=== PATIENT | male | born 1945 | race African-American/Black ===

== ENCOUNTER 2018-08-11 16:01 | Inpatient (IN) | payer MEDICARE, MEDICAID ==
[~2018-08-11] VITALS: Ht 172.7 cm; Wt 75.7 kg
[2018-08-11 16:50] VITALS: BP 130/53
[2018-08-11 17:02] LABS: ANION GAP 6 mmol/L (5-15); BLOOD UREA NITROGEN 16 mg/dL (7-18); CALCIUM 9.3 MG/DL (8.5-10.1); CARBON DIOXIDE 30 MMOL/L (21-32); CHLORIDE 104 MMOL/L (98-107); POTASSIUM 4.6 MMOL/L (3.5-5.1); SODIUM 139 MMOL/L (136-145)
[2018-08-11 17:15] LABS: ALANINE AMINOTRANSFERASE 49 U/L (12-78); ALBUMIN 3.5 G/DL (3.4-5.0); ALBUMIN/GLOBULIN RATIO 0.7 (1.0-2.7); ALKALINE PHOSPHATASE 67 U/L (46-116); ASPARTATE AMINO TRANSFERASE 52 U/L (15-37); BILIRUBIN,TOTAL 0.4 MG/DL (0.2-1.0); CKMB 0.7 NG/ML (0.0-3.6); CREATINE KINASE 176 U/L (26-308)
--- NOTE | 2018-08-11 17:59 | Diagnostic Imaging Report ---
EXAM: CT Head Without Intravenous Contrast CLINICAL HISTORY: AMS TECHNIQUE: Axial computed tomography images of the head/brain without intravenous contrast. CTDI is 70.38 mGy and DLP is 1333 mGy-cm. One or more of the following dose reduction techniques were used: automated exposure control, adjustment of the mA and/or kV according to patient size, use of iterative reconstruction technique. COMPARISON: No relevant prior studies available. FINDINGS: Brain: No intracranial hemorrhage or mass effect. No clear acute large vessel territorial infarct. Moderate involutional and microvascular ischemic changes Ventricles: Unremarkable. No ventriculomegaly. Bones/joints: Unremarkable. No acute fracture. Soft tissues: Right ocular globe calcifications. Sinuses: Unremarkable as visualized. No acute sinusitis. Mastoid air cells: Unremarkable as visualized. No mastoid effusion. IMPRESSION: No acute intracranial process. Moderate involutional and microvascular ischemic changes.
--- NOTE | 2018-08-11 18:00 | Diagnostic Imaging Report ---
EXAM: XR Chest, 1 View CLINICAL HISTORY: DIZZY TECHNIQUE: Frontal view of the chest. COMPARISON: No relevant prior studies available. FINDINGS: Lungs: Linear opacities in the midlungs bilaterally, potentially from atelectasis. Difficult to exclude infectious infiltrate. Pleural space: Unremarkable. No pneumothorax. Heart: Unremarkable. No cardiomegaly. Mediastinum: Unremarkable. Bones/joints: Unremarkable. IMPRESSION: Linear opacities in the midlungs bilaterally, potentially from atelectasis. Difficult to exclude infectious infiltrate.
[2018-08-11 18:06] LABS: BASOPHILS % (AUTO) 1.2 % (0.0-2.0); EOSINOPHILS % (AUTO) 2.1 % (0.0-3.0); HEMATOCRIT 44.5 % (42.0-52.0); LYMPHOCYTES % (AUTO) 31.2 % (20.0-45.0); MEAN CORPUSCULAR VOLUME 94 FL (80-99); MONOCYTES % (AUTO) 8.9 % (1.0-10.0); NEUTROPHILS % (AUTO) 56.5 % (45.0-75.0); PLATELET COUNT 188 K/UL (150-450); RED BLOOD COUNT 4.74 M/UL (4.70-6.10); RED CELL DISTRIBUTION WIDTH 10.3 % (11.6-14.8); WHITE BLOOD COUNT 7.3 K/UL (4.8-10.8)
--- NOTE | 2018-08-11 18:29 | Emergency Room Report ---
History of Present Illness General Chief Complaint: Generalized Weakness Present Illness HPI Patient is 73-year-old male brought in by EMS after increased generalized weakness. Patient gradual onset of symptoms. Patient was noted to have increased weakness as well as dizziness. He reports having intermittent chest pain. The patient been sent in from nursing facility. He is followed by Dr. Fajardo. The patient had been the noted to have continued symptoms and was sent in for further evaluation. Allergies: Coded Allergies: No Known Allergies (Unverified , 08/11/18) Patient History Past Medical History: see triage record Reviewed Nursing Documentation: PMH: Agreed; PSxH: Agreed Nursing Documentation-PMH Hx Cardiac Problems: No - angina pectoris Hx Hypertension: Yes Hx COPD: Yes Review of Systems All Other Systems: limited - by poor historian Physical Exam Vital Signs Date Time Temp Pulse Resp B/P (MAP) Pulse Ox O2 Delivery O2 Flow Rate FiO2 08/11/18 16:05 97.9 58 18 116/66 95 Room Air Sp02 EP Interpretation: reviewed, normal General Appearance: normal inspection, well appearing, no apparent distress, alert, GCS 15, Chronically Ill Head: atraumatic ENT: normal ENT inspection, hearing grossly normal, normal voice Neck: normal inspection, full range of motion, supple, no bony tend Respiratory: normal inspection, lungs clear, normal breath sounds, no respiratory distress, no retraction, no wheezing Cardiovascular #1: regular rate, rhythm, no edema Gastrointestinal: normal inspection, normal bowel sounds, non tender, soft, no guarding, no hernia Genitourinary: no CVA tenderness Musculoskeletal: normal inspection, back normal, normal range of motion Neurologic: normal inspection, alert, responsive, speech normal Psychiatric: normal inspection, judgement/insight normal, mood/affect normal Skin: normal inspection, normal color, no rash Medical Decision Making Diagnostic Impression: Primary Impression: Generalized weakness Additional Impression: Chest pain ER Course The patient presented for chest pain and dizziness. Differential diagnosis included but was not limited to acute coronary syndrome, pulmonary embolism, pneumonia, aortic dissection, shingles, pneumothorax, aortic dissection, esophageal rupture, pericarditis. Because of complexity of patient's case laboratory testing and imaging studies were ordered. EKG interpreted by me showed sinus pericardia with a rate of [address] or T wave changes. The laboratory testing was unremarkable. Patient the was discussed with Dr. Ace Fajardo for inpatient management due to primary care physician Labs Test 08/11/18 16:30 08/11/18 17:40 Sodium Level 139 MMOL/L (136-145) Potassium Level 4.6 MMOL/L (3.5-5.1) Chloride Level 104 MMOL/L (98-107) Carbon Dioxide Level 30 MMOL/L (21-32) Anion Gap 6 mmol/L (5-15) Blood Urea Nitrogen 16 mg/dL (7-18) Creatinine 1.0 MG/DL (0.55-1.30) Estimat Glomerular Filtration Rate mL/min (>60) Glucose Level 98 MG/DL (74-106) Calcium Level 9.3 MG/DL (8.5-10.1) Total Bilirubin 0.4 MG/DL (0.2-1.0) Aspartate Amino Transf (AST/SGOT) 52 U/L (15-37) Alanine Aminotransferase (ALT/SGPT) 49 U/L (12-78) Alkaline Phosphatase 67 U/L (46-116) Total Creatine Kinase 176 U/L (26-308) Creatine Kinase MB 0.7 NG/ML (0.0-3.6) Creatine Kinase MB Relative Index 0.3 Troponin I 0.046 ng/mL (0.000-0.056) Pro-B-Type Natriuretic Peptide 36 pg/mL (0-125) Total Protein 8.3 G/DL (6.4-8.2) Albumin 3.5 G/DL (3.4-5.0) Globulin 4.8 g/dL Albumin/Globulin Ratio 0.7 (1.0-2.7) Lipase 210 U/L (73-393) White Blood Count 7.3 K/UL (4.8-10.8) Red Blood Count 4.74 M/UL (4.70-6.10) Hemoglobin 15.0 G/DL (14.2-18.0) Hematocrit 44.5 % (42.0-52.0) Mean Corpuscular Volume 94 FL (80-99) Mean Corpuscular Hemoglobin 31.6 PG (27.0-31.0) Mean Corpuscular Hemoglobin Concent 33.7 G/DL (32.0-36.0) Red Cell Distribution Width 10.3 % (11.6-14.8) Platelet Count 188 K/UL (150-450) Mean Platelet Volume 5.9 FL (6.5-10.1) Neutrophils (%) (Auto) 56.5 % (45.0-75.0) Lymphocytes (%) (Auto) 31.2 % (20.0-45.0) Monocytes (%) (Auto) 8.9 % (1.0-10.0) Eosinophils (%) (Auto) 2.1 % (0.0-3.0) Basophils (%) (Auto) 1.2 % (0.0-2.0) EKG Diagnostic Results Rate: bradycardiac Rhythm: NSR ST Segments: no acute changes Last Vital Signs Date Time Temp Pulse Resp B/P (MAP) Pulse Ox O2 Delivery O2 Flow Rate FiO2 08/11/18 16:50 97.9 57 21 130/53 100 Room Air Status: improved Disposition: HOME, SELF-CARE Condition: Stable Christopher Badillo MD Aug 11, 2018 18:29
[2018-08-11 18:51] LABS: INR 1.1 (0.9-1.1)
[2018-08-11 20:30] VITALS: BP 131/78
[2018-08-11 22:25] VITALS: BP 136/69
[2018-08-11] MEDS ORDERED: ATORVASTATIN CA20 MG ORAL (23:02)
[2018-08-11] MEDS ORDERED: ISOSORBIDE DINI20 M2 PO (23:02)
[2018-08-11] MEDS ORDERED: FOLIC ACID1 MG ORAL (23:02)
[2018-08-11] MEDS ORDERED: ASPIR 8181 MG ORAL (23:02)
[2018-08-11] MEDS ORDERED: MELATONIN 5 MG1 EAC1 ORAL (23:02)
[2018-08-11] MEDS ORDERED: MULTIVITAMINS1 EAC8 ORAL (23:02)
[2018-08-11] MEDS ORDERED: DOCUSATE SODIU100 MG ORAL (23:02)
[2018-08-11] MEDS ORDERED: TRAMADOL HCL50 MG ORAL (23:04)
[2018-08-11] MEDS ORDERED: VITAMIN B-1100 MG ORAL (23:04)
[2018-08-11] MEDS ORDERED: PYRIDOXINE HCL50 MG ORAL (23:04)
[2018-08-12] VITALS: BP 119/45
--- NOTE | 2018-08-12 | History and Physical Report ---
DATE OF ADMISSION: 08/11/2018 HISTORY OF PRESENT ILLNESS: This is an elderly male who was living at senior living, initially was coming from the senior living where he had chest pain and dizzy spell. The patient went to [facility] three days ago for dizziness workup. The patient was sent home. The patient is still complaining of recurrent chest pain as well as dizziness. He has no fever. No chills. PAST MEDICAL HISTORY: Significant for hypertension and degenerative arthritis. MEDICATIONS: See the list. ALLERGIES: NKA. FAMILY HISTORY: Noncontributory. SOCIAL HISTORY: Lives at the senior living. PHYSICAL EXAMINATION: GENERAL: This is an elderly male, currently awake, comfortable. VITAL SIGNS: Blood pressure was 130/70, pulse in the low 50s, 56, and respiration 18. No fever. SKIN: Good skin turgor. HEENT: NAD. CHEST: Bilaterally clear. CARDIOVASCULAR: Regular rhythm. No gallop. No murmur. ABDOMEN: Soft. Positive bowel sounds. EXTREMITIES: No edema. GENITOURINARY: Deferred. ASSESSMENT: 1. Chest pain. 2. Dizziness. 3. Hypertension. 4. Hyperlipidemia. 5. Atherosclerosis. 6. Degenerative arthritis. PLAN: We will rule out myocardial infarction. Consider Cardiology consult and start aspirin, beta-blanca, and Cardiology consult. Ace Fajardo M.D. DR: IRWIN JOB#: [id number] CC:
[2018-08-12 04:00] VITALS: BP 98/55
[2018-08-12 08:00] VITALS: BP 136/67
[2018-08-12] MEDS: Pyridoxine 50mg tab ORAL SCH (09:22)
[2018-08-12] MEDS: Docusate 100mg cap ORAL SCH (09:23)
[2018-08-12] MEDS: Aspirin EC 81mg tab ORAL SCH (09:24)
[2018-08-12] MEDS: Multivitamin w/Minerals tab ORAL SCH (09:24)
[2018-08-12] MEDS ORDERED: Nitroglycerin Subl 0.4mg tab SL PRN (09:45)
[2018-08-12] MEDS: Thiamine 100mg tab ORAL SCH (09:53)
[2018-08-12] MEDS: cefTRIAXone 1 GM in D5W 55 ML IVPB SCH (11:50)
[2018-08-12 12:00] VITALS: BP 112/63
[2018-08-12 16:00] VITALS: BP 128/61
--- NOTE | 2018-08-12 17:22 | Cardiology Progress Note ---
Assessment/Plan Assessment/Plan The patient is seen and examined, full consult note will be dictated. Objective Last 24 Hour Vital Signs Date Time Temp Pulse Resp B/P (MAP) Pulse Ox O2 Delivery O2 Flow Rate FiO2 08/12/18 16:00 98.4 56 18 128/61 (83) 98 08/12/18 12:00 97.6 59 18 112/63 (79) 97 08/12/18 12:00 52 08/12/18 10:43 127/61 08/12/18 09:23 136/67 08/12/18 09:00 Room Air 08/12/18 08:00 97.4 58 20 136/67 (90) 97 08/12/18 08:00 66 08/12/18 04:00 97.3 58 18 98/55 (69) 98 08/12/18 04:00 58 08/12/18 00:00 67 08/12/18 00:00 98.5 67 20 119/45 (69) 98 08/11/18 23:30 Room Air 08/11/18 23:30 63 08/11/18 23:05 98.4 76 16 136/69 100 Room Air 08/11/18 22:25 98.4 76 16 136/69 100 Room Air 08/11/18 20:30 98.4 79 16 131/78 100 Room Air Intake and Output 08/11/18 08/12/18 19:00 07:00 Intake Total 120 ml Balance 120 ml Intake Oral 120 ml # Voids 2 # Bowel Movements 1 Laboratory Tests Test 08/11/18 17:40 08/11/18 17:45 08/12/18 10:20 White Blood Count 7.3 K/UL (4.8-10.8) Red Blood Count 4.74 M/UL (4.70-6.10) Hemoglobin 15.0 G/DL (14.2-18.0) Hematocrit 44.5 % (42.0-52.0) Mean Corpuscular Volume 94 FL (80-99) Mean Corpuscular Hemoglobin 31.6 PG (27.0-31.0) H Mean Corpuscular Hemoglobin Concent 33.7 G/DL (32.0-36.0) Red Cell Distribution Width 10.3 % (11.6-14.8) L Platelet Count 188 K/UL (150-450) Mean Platelet Volume 5.9 FL (6.5-10.1) L Neutrophils (%) (Auto) 56.5 % (45.0-75.0) Lymphocytes (%) (Auto) 31.2 % (20.0-45.0) Monocytes (%) (Auto) 8.9 % (1.0-10.0) Eosinophils (%) (Auto) 2.1 % (0.0-3.0) Basophils (%) (Auto) 1.2 % (0.0-2.0) Prothrombin Time 11.2 SEC (9.30-11.50) Prothromb Time International Ratio 1.1 (0.9-1.1) Activated Partial Thromboplast Time 25 SEC (23-33) D-Dimer 0.90 mg/L FEU (0.00-0.49) H Troponin I 0.051 ng/mL (0.000-0.056) Heber Torres MD Aug 12, 2018 17:22
--- NOTE | 2018-08-12 19:15 | Progress Note ---
DATE: 08/12/2018 SUBJECTIVE: This is a 73-year-old male, currently doing fine, and still complaining of recurrent chest pain. He was given nitroglycerin. Blood pressure is controlled. OBJECTIVE: VITAL SIGNS: Blood pressure 136/67, pulse 58, respirations 20, and temperature 97.4. HEENT: NAD. CHEST: Bilaterally few wheezing and crackles. CARDIOVASCULAR: Regular rhythm. No gallop. No murmur. ABDOMEN: Soft. Positive bowel sounds. EXTREMITIES: CCE. NEUROLOGICALLY: No focal deficit. LABORATORY DATA: White count 7.3, hemoglobin 15, hematocrit 44, and platelets are 188,000. Chemistry panel is sodium 139, potassium 4.6, BUN 16, and creatinine 1. Troponin 0.046. BNP 36. CT of head is negative. Chest x-ray showed possible pneumonia and acute and chronic obstructive pulmonary disease, and interstitial lung disease. ASSESSMENT: 1. Chest pain, rule out of myocardial infarction. 2. Acute chronic obstructive pulmonary disease exacerbation. 3. Dizziness. 4. Hypertension. 5. Hyperlipidemia. PLAN: 1. We will consider Cardiology consult. 2. Add nitroglycerin. 3. Continue aspirin. 4. Continue beta-blanca. 5. Continue Lipitor and probably need echo. 6. CT of brain is negative. 7. PT and OT. Ace Fajardo M.D. DR: IRWIN JOB#: [id number] CC:
[2018-08-12 20:00] VITALS: BP 121/69
[2018-08-12] MEDS: Metoprolol 25mg tab ORAL SCH (21:12)
[2018-08-12] MEDS: Solu-MEDROL 40mg Inj IVP SCH (21:13)
[2018-08-12] MEDS: traMADol 50mg tab ORAL PRN (23:19)
--- NOTE | 2018-08-12 23:30 | Consultation ---
DATE OF CONSULTATION: 08/12/2018 CARDIOLOGY CONSULTATION CONSULTING PHYSICIAN: Heber Torres M.D. REFERRING PHYSICIAN: Dr. Anthony Fajardo. REASON FOR CONSULTATION: Management of chest pain. HISTORY OF PRESENT ILLNESS: The patient is a very unfortunate 73-year-old gentleman who was brought in by EMS from correction facility at request of Dr. Fajardo for evaluation and management of generalized weakness as well as intermittent chest pain. The patient has history of angina pectoris and has coronary artery disease, risk factors of hypertension by history. He is a very poor historian and I cannot obtain detailed history. On arrival to the emergency department, blood pressure was 116/66 mmHg and heart rate of 58. A 12-lead electrocardiogram in the emergency department showed sinus bradycardia with rate of 57 with normal axis and septal infarct, age indeterminate, but no acute ischemic features. Chest x-ray was unremarkable besides atelectasis. The patient was admitted to telemetry for further evaluation and management. Of note, troponin I x2 became negative, so he was ruled out for acute myocardial infarction. PAST MEDICAL HISTORY: 1. History of hypertension. 2. History of degenerative joint disease. 3. History of angina pectoris. 4. History of chronic obstructive pulmonary disease. REVIEW OF SYSTEMS: HEENT: Denies any headache, diplopia, or blurred vision. CONSTITUTIONAL: Denies any fever, chills, or night sweats. Positive for generalized weakness. CARDIOVASCULAR: Chest pain, but no PND, orthopnea, leg swelling, palpitations, or syncope. PULMONARY: Denies any cough, hemoptysis, or wheezing. GASTROINTESTINAL: Denies any nausea, vomiting, diarrhea, constipation, abdominal pain, or GI bleed. GENITOURINARY: Denies any hematuria, dysuria, or incontinence. NEUROLOGY: Denies any motor dysfunction, sensory deficit, or altered speech. MEDICATIONS: List of medication at nursing facility, aspirin 81 mg p.o. daily, atorvastatin 10 mg p.o. at bedtime, Colace 100 mg p.o. daily, folic acid 1 mg p.o. daily, isosorbide dinitrate 10 mg p.o. daily, melatonin 1 tablet p.o. at bedtime p.r.n. insomnia, multivitamin 1 tablet by mouth daily, vitamin B6 50 mg p.o. daily, thiamine 100 mg p.o. daily, and Ultram 50 mg q.8 hours p.r.n. pain. ALLERGIES: No known drug allergies. PAST SURGICAL HISTORY: None. SOCIAL HISTORY: No prior history of tobacco, alcohol, or illicit drug use according to the chart. FAMILY HISTORY: No premature coronary artery disease in first-degree relatives. PHYSICAL EXAMINATION: VITAL SIGNS: Blood pressure is 116/66, pulse of 58, respirations of 18, temperature 97.9 degrees Fahrenheit, and O2 saturation 95% on room air. GENERAL: The patient is a very unfortunate 73-year-old gentleman, in no apparent respiratory distress. Alert and orient x4. HEENT: Atraumatic and normocephalic. Anicteric. Pupils are equal, round, and reactive to light and accommodation. Extraocular muscles intact. NECK: JVP less than 5 cm. No carotid bruit. Carotid upstroke is 2+ bilaterally. CARDIOVASCULAR: Normal S1 and S2. A 2/6 mid systolic murmur at the left sternal border. PMI is at fourth intercostal space in the midclavicular line. LUNGS: Diminished breath sounds in both lungs. ABDOMEN: Soft, nontender, and nondistended. No hepatosplenomegaly. Positive bowel sounds. EXTREMITIES: No evidence of edema, clubbing, or cyanosis. LABORATORY FINDINGS: Sodium is 139, potassium is 4.3, chloride 104, bicarbonate 30, BUN 16, creatinine 1.0, glucose 98, and calcium 9.3. Troponin I x2 negative. BNP is 36. WBC 7.3, hemoglobin 15.7, hematocrit of 44.5, and platelet count is 188. INR is 1.1. ASSESSMENT AND PLAN: The patient is a very unfortunate 73-year-old gentleman, seen in Cardiology consultation. 1. Noncardiac chest pain. The patient's chest pain is nonischemic in origin based on the characters of the chest pain. A 12-lead electrocardiogram does not show any evidence of ischemia. Acute myocardial infarction is ruled out. We will obtain 2D echocardiography for evaluation of LV systolic and diastolic function. I will continue aspirin and atorvastatin in this patient. 2. History of hypertension, currently blood pressure is well controlled. We will continue monitoring the patient throughout the stay. 3. History of angina pectoris by records ____. There is no evidence of angina. 4. ProBNP is also within normal limits, which is ruled out increased intracardiac filling pressures. 5. History of chronic obstructive pulmonary disease. I would like to thank, Dr. Fajardo, for allowing me to participate in the care of this patient. Heber Torres M.D. DR: NEEMA JOB#: [id number] CC:
[2018-08-13] VITALS: BP 125/76
[2018-08-13 04:00] VITALS: BP 123/70
[2018-08-13 08:00] VITALS: BP 138/82
[2018-08-13] MEDS: Aspirin EC 81mg tab ORAL SCH (09:29)
[2018-08-13] MEDS: Thiamine 100mg tab ORAL SCH (09:29)
[2018-08-13] MEDS: Multivitamin w/Minerals tab ORAL SCH (09:29)
[2018-08-13] MEDS: Docusate 100mg cap ORAL SCH (09:29)
[2018-08-13] MEDS: Pyridoxine 50mg tab ORAL SCH (09:29)
[2018-08-13] MEDS: Solu-MEDROL 40mg Inj IVP SCH ×2 (09:30→20:22)
[2018-08-13] MEDS: Pantoprazole Inj IVP SCH (09:30)
[2018-08-13] MEDS: cefTRIAXone 1 GM in D5W 55 ML IVPB SCH (11:28)
[2018-08-13 12:00] VITALS: BP 117/68
[2018-08-13 16:00] VITALS: BP 105/64
[2018-08-13 17:52] LABS: BASOPHILS % (AUTO) 0.2 % (0.0-2.0); EOSINOPHILS % (AUTO) 0.4 % (0.0-3.0); HEMATOCRIT 44.1 % (42.0-52.0); HEMOGLOBIN 15.2 G/DL (14.2-18.0); LYMPHOCYTES % (AUTO) 14.6 % (20.0-45.0); MEAN CORPUSCULAR VOLUME 95 FL (80-99); NEUTROPHILS % (AUTO) 77.7 % (45.0-75.0); PLATELET COUNT 203 K/UL (150-450); RED BLOOD COUNT 4.67 M/UL (4.70-6.10); RED CELL DISTRIBUTION WIDTH 10.3 % (11.6-14.8); WHITE BLOOD COUNT 17.4 K/UL (4.8-10.8)
[2018-08-13 18:17] LABS: ALANINE AMINOTRANSFERASE 68 U/L (12-78); ALBUMIN 3.7 G/DL (3.4-5.0); ALBUMIN/GLOBULIN RATIO 0.7 (1.0-2.7); ALKALINE PHOSPHATASE 75 U/L (46-116); ANION GAP 8 mmol/L (5-15); ASPARTATE AMINO TRANSFERASE 48 U/L (15-37); BILIRUBIN,TOTAL 0.5 MG/DL (0.2-1.0); BLOOD UREA NITROGEN 16 mg/dL (7-18); CALCIUM 9.3 MG/DL (8.5-10.1); CARBON DIOXIDE 28 MMOL/L (21-32); CHLORIDE 102 MMOL/L (98-107); CREATININE 1.1 MG/DL (0.55-1.30); SODIUM 138 MMOL/L (136-145)
--- NOTE | 2018-08-13 19:36 | Cardiology Progress Note ---
Assessment/Plan Assessment/Plan 1. Noncardiac chest pain. The patient's chest pain is nonischemic in origin based on the characters of the chest pain. 12-lead electrocardiogram does not show any evidence of ischemia. Acute myocardial infarction is ruled out. Awaiting 2D echocardiography for evaluation of LV systolic and diastolic function, continue aspirin and atorvastatin. 2. History of hypertension, well controlled, continue metoprolol. 3. History of angina pectoris. 4. History of chronic obstructive pulmonary disease. Objective Last 24 Hour Vital Signs Date Time Temp Pulse Resp B/P (MAP) Pulse Ox O2 Delivery O2 Flow Rate FiO2 08/13/18 16:00 63 08/13/18 16:00 97.4 66 18 105/64 (78) 97 08/13/18 12:00 67 08/13/18 12:00 98.2 70 18 117/68 (84) 98 08/13/18 09:30 138/82 08/13/18 09:00 Room Air 08/13/18 08:00 75 08/13/18 08:00 97.5 74 18 138/82 (100) 98 08/13/18 08:00 75 08/13/18 04:00 73 08/13/18 04:00 96.6 85 20 123/70 (87) 95 08/13/18 00:00 97.9 68 21 125/76 (92) 99 08/13/18 00:00 65 08/12/18 21:12 67 128/61 08/12/18 21:00 Room Air 08/12/18 20:00 62 08/12/18 20:00 97.9 62 20 121/69 (86) 100 Intake and Output 08/12/18 08/13/18 19:00 07:00 Intake Total 480 ml 200 ml Output Total 750 ml Balance -270 ml 200 ml Intake Oral 480 ml 200 ml Output Urine Total 750 ml # Bowel Movements 2 Laboratory Tests Test 08/13/18 17:40 White Blood Count 17.4 K/UL (4.8-10.8) H Red Blood Count 4.67 M/UL (4.70-6.10) L Hemoglobin 15.2 G/DL (14.2-18.0) Hematocrit 44.1 % (42.0-52.0) Mean Corpuscular Volume 95 FL (80-99) Mean Corpuscular Hemoglobin 32.6 PG (27.0-31.0) H Mean Corpuscular Hemoglobin Concent 34.5 G/DL (32.0-36.0) Red Cell Distribution Width 10.3 % (11.6-14.8) L Platelet Count 203 K/UL (150-450) Mean Platelet Volume 6.1 FL (6.5-10.1) L Neutrophils (%) (Auto) 77.7 % (45.0-75.0) H Lymphocytes (%) (Auto) 14.6 % (20.0-45.0) L Monocytes (%) (Auto) 7.0 % (1.0-10.0) Eosinophils (%) (Auto) 0.4 % (0.0-3.0) Basophils (%) (Auto) 0.2 % (0.0-2.0) Sodium Level 138 MMOL/L (136-145) Potassium Level 4.0 MMOL/L (3.5-5.1) Chloride Level 102 MMOL/L (98-107) Carbon Dioxide Level 28 MMOL/L (21-32) Anion Gap 8 mmol/L (5-15) Blood Urea Nitrogen 16 mg/dL (7-18) Creatinine 1.1 MG/DL (0.55-1.30) Estimat Glomerular Filtration Rate mL/min (>60) Glucose Level 116 MG/DL (74-106) H Calcium Level 9.3 MG/DL (8.5-10.1) Total Bilirubin 0.5 MG/DL (0.2-1.0) Aspartate Amino Transf (AST/SGOT) 48 U/L (15-37) H Alanine Aminotransferase (ALT/SGPT) 68 U/L (12-78) Alkaline Phosphatase 75 U/L (46-116) Total Protein 8.8 G/DL (6.4-8.2) H Albumin 3.7 G/DL (3.4-5.0) Globulin 5.1 g/dL Albumin/Globulin Ratio 0.7 (1.0-2.7) L Microbiology Date/Time Source Procedure Growth Status 08/11/18 22:40 Rectum VRE Culture Pending Resulted 08/11/18 22:40 Rectum - Preliminary Resulted Objective HEENT: Atraumatic and normocephalic. Anicteric. Pupils are equal, round, and reactive to light and accommodation. Extraocular muscles intact. NECK: JVP less than 5 cm. No carotid bruit. Carotid upstroke is 2+ bilaterally. CARDIOVASCULAR: Normal S1 and S2. A 2/6 mid systolic murmur at the left sternal border. PMI is at fourth intercostal space in the midclavicular line. LUNGS: Diminished breath sounds in both lungs. ABDOMEN: Soft, nontender, and nondistended. No hepatosplenomegaly. Positive bowel sounds. EXTREMITIES: No evidence of edema, clubbing, or cyanosis. Heber Torres MD Aug 13, 2018 19:36
[2018-08-13 20:00] VITALS: BP 125/69
[2018-08-13] MEDS: traMADol 50mg tab ORAL PRN (20:21)
[2018-08-13] MEDS: Metoprolol 25mg tab ORAL SCH (20:23)
[2018-08-14] VITALS: BP 123/70
[2018-08-14 04:00] VITALS: BP 110/63
[2018-08-14 08:00] VITALS: BP 132/76
[2018-08-14] MEDS: Pantoprazole Inj IVP SCH (09:13)
[2018-08-14] MEDS: Thiamine 100mg tab ORAL SCH (09:14)
[2018-08-14] MEDS: Multivitamin w/Minerals tab ORAL SCH (09:14)
[2018-08-14] MEDS: Pyridoxine 50mg tab ORAL SCH (09:14)
[2018-08-14] MEDS: Aspirin EC 81mg tab ORAL SCH (09:14)
[2018-08-14] MEDS: Docusate 100mg cap ORAL SCH (09:14)
[2018-08-14] MEDS: Solu-MEDROL 40mg Inj IVP SCH ×2 (09:39→20:44)
[2018-08-14] MEDS: cefTRIAXone 1 GM in D5W 55 ML IVPB SCH (11:07)
[2018-08-14 12:00] VITALS: BP 107/66
--- NOTE | 2018-08-14 12:17 | Consultation ---
History of Present Illness General Chief Complaint: Generalized Weakness Present Illness Allergies: Coded Allergies: No Known Allergies (Unverified , 08/11/18) Medication History Scheduled Aspirin* (Aspir 81*), 81 MG ORAL DAILY, (Reported) Atorvastatin Calcium* (Atorvastatin Calcium*), 10 MG ORAL BEDTIME, (Reported) Docusate Sodium* (Docusate Sodium*), 100 MG ORAL DAILY, (Reported) Folic Acid* (Folic Acid*), 1 MG ORAL DAILY, (Reported) Isosorbide Dinitrate (Isosorbide Dinitrate), 10 MG PO DAILY, (Reported) Multivitamin With Minerals (Multivitamins With Minerals*), 1 TAB ORAL DAILY, ( Reported) Pyridoxine Hcl* (Vitamin B-6*), 50 MG ORAL DAILY, (Reported) Thiamine Hcl* (Vitamin B-1*), 100 MG ORAL DAILY, (Reported) Scheduled PRN Melatonin (Melatonin 5 Mg Tablet), 1 TAB ORAL BEDTIME PRN for Insomnia, ( Reported) Tramadol Hcl* (Ultram*), 50 MG ORAL Q8HR PRN for For Pain, (Reported) Patient History Healthcare decision maker Resuscitation status Full Code Advanced Directive on File Physical Exam Last 24 Hour Vital Signs Date Time Temp Pulse Resp B/P (MAP) Pulse Ox O2 Delivery O2 Flow Rate FiO2 08/14/18 12:00 98.3 49 20 107/66 (80) 95 08/14/18 09:14 132/76 08/14/18 09:00 Room Air 08/14/18 08:00 69 08/14/18 08:00 97.5 66 20 132/76 (94) 95 08/14/18 04:00 96.8 46 18 110/63 (79) 99 08/14/18 03:35 52 08/14/18 00:00 96.8 57 20 123/70 (87) 97 08/13/18 23:23 50 08/13/18 21:00 Room Air 08/13/18 20:23 74 126/81 08/13/18 20:13 75 08/13/18 20:00 98.1 61 18 125/69 (87) 100 08/13/18 16:00 63 08/13/18 16:00 97.4 66 18 105/64 (78) 97 Intake and Output 08/13/18 08/14/18 19:00 07:00 Intake Total 480 ml 200 ml Output Total 150 ml Balance 330 ml 200 ml Intake Oral 480 ml 200 ml Output Urine Total 150 ml # Voids 3 Laboratory Tests Test 08/13/18 17:40 White Blood Count 17.4 K/UL (4.8-10.8) H Red Blood Count 4.67 M/UL (4.70-6.10) L Hemoglobin 15.2 G/DL (14.2-18.0) Hematocrit 44.1 % (42.0-52.0) Mean Corpuscular Volume 95 FL (80-99) Mean Corpuscular Hemoglobin 32.6 PG (27.0-31.0) H Mean Corpuscular Hemoglobin Concent 34.5 G/DL (32.0-36.0) Red Cell Distribution Width 10.3 % (11.6-14.8) L Platelet Count 203 K/UL (150-450) Mean Platelet Volume 6.1 FL (6.5-10.1) L Neutrophils (%) (Auto) 77.7 % (45.0-75.0) H Lymphocytes (%) (Auto) 14.6 % (20.0-45.0) L Monocytes (%) (Auto) 7.0 % (1.0-10.0) Eosinophils (%) (Auto) 0.4 % (0.0-3.0) Basophils (%) (Auto) 0.2 % (0.0-2.0) Sodium Level 138 MMOL/L (136-145) Potassium Level 4.0 MMOL/L (3.5-5.1) Chloride Level 102 MMOL/L (98-107) Carbon Dioxide Level 28 MMOL/L (21-32) Anion Gap 8 mmol/L (5-15) Blood Urea Nitrogen 16 mg/dL (7-18) Creatinine 1.1 MG/DL (0.55-1.30) Estimat Glomerular Filtration Rate mL/min (>60) Glucose Level 116 MG/DL (74-106) H Calcium Level 9.3 MG/DL (8.5-10.1) Total Bilirubin 0.5 MG/DL (0.2-1.0) Aspartate Amino Transf (AST/SGOT) 48 U/L (15-37) H Alanine Aminotransferase (ALT/SGPT) 68 U/L (12-78) Alkaline Phosphatase 75 U/L (46-116) Total Protein 8.8 G/DL (6.4-8.2) H Albumin 3.7 G/DL (3.4-5.0) Globulin 5.1 g/dL Albumin/Globulin Ratio 0.7 (1.0-2.7) L Height (Feet): 5 Height (Inches): 8.00 Weight (Pounds): 167 Medications Current Medications Medications (Trade) Dose Ordered Sig/Lynn Route PRN Reason Start Time Stop Time Status Last Admin Dose Admin Acetaminophen (Tylenol) 650 mg Q4H PRN ORAL Mild Pain/Temp > 100.5 08/11/18 22:45 09/10/18 22:44 Aspirin (Ecotrin) 81 mg DAILY ORAL 08/12/18 09:00 09/11/18 08:59 08/14/18 09:14 Atorvastatin Calcium (Lipitor) 10 mg BEDTIME ORAL 08/12/18 21:00 09/11/18 20:59 08/13/18 20:22 Ceftriaxone Sodium 1 gm/ Dextrose 55 ml @ 110 mls/hr Q24H IVPB 08/12/18 11:00 08/19/18 10:59 08/14/18 11:07 Docusate Sodium (Colace) 100 mg DAILY ORAL 08/12/18 09:00 09/11/18 08:59 08/14/18 09:14 Folic Acid (Folate) 1 mg DAILY ORAL 08/12/18 09:00 09/11/18 08:59 08/14/18 09:14 Isosorbide Dinitrate (Isordil) 10 mg DAILY ORAL 08/12/18 09:00 09/11/18 08:59 08/14/18 09:14 Methylprednisolone Sodium Succinate (Solu-MEDROL) 20 mg EVERY 12 HOURS IVP 08/14/18 09:00 09/11/18 20:59 08/14/18 09:39 Multivitamins Therapeutic (Therapeutic Multivitamin) 1 ea DAILY ORAL 08/12/18 09:00 09/11/18 08:59 08/14/18 09:14 Nitroglycerin (Ntg) 0.4 mg Q5M PRN SL Prn Chest Pain 08/12/18 09:45 09/11/18 09:44 08/12/18 10:43 Pantoprazole (Protonix) 40 mg DAILY IVP 08/13/18 09:00 09/12/18 08:59 08/14/18 09:13 Pyridoxine HCl (Vitamin B6) 50 mg DAILY ORAL 08/12/18 09:00 09/11/18 08:59 08/14/18 09:14 Thiamine HCl (Vitamin B1) 100 mg DAILY ORAL 08/12/18 09:00 09/11/18 08:59 08/14/18 09:14 Tramadol HCl (Ultram) 50 mg Q8H PRN ORAL For Pain 08/12/18 03:30 08/19/18 03:29 08/13/18 20:21 Deysi Malone MD Aug 14, 2018 12:17
--- NOTE | 2018-08-14 12:55 | Cardiac Electrophysiology PN ---
Subjective Subjective EP consult for bradycardia dictated [id number] Objective Last 24 Hour Vital Signs Date Time Temp Pulse Resp B/P (MAP) Pulse Ox O2 Delivery O2 Flow Rate FiO2 08/14/18 12:00 98.3 49 20 107/66 (80) 95 18 09:14 132/76 08/14/18 09:00 Room Air 08/14/18 08:00 69 08/14/18 08:00 97.5 66 20 132/76 (94) 95 08/14/18 04:00 96.8 46 18 110/63 (79) 99 08/14/18 03:35 52 08/14/18 00:00 96.8 57 20 123/70 (87) 97 08/13/18 23:23 50 08/13/18 21:00 Room Air 08/13/18 20:23 74 126/81 08/13/18 20:13 75 08/13/18 20:00 98.1 61 18 125/69 (87) 100 08/13/18 16:00 63 08/13/18 16:00 97.4 66 18 105/64 (78) 97 Intake and Output 08/13/18 08/14/18 19:00 07:00 Intake Total 480 ml 200 ml Output Total 150 ml Balance 330 ml 200 ml Intake Oral 480 ml 200 ml Output Urine Total 150 ml # Voids 3 Laboratory Tests Test 08/13/18 17:40 White Blood Count 17.4 K/UL (4.8-10.8) H Red Blood Count 4.67 M/UL (4.70-6.10) L Hemoglobin 15.2 G/DL (14.2-18.0) Hematocrit 44.1 % (42.0-52.0) Mean Corpuscular Volume 95 FL (80-99) Mean Corpuscular Hemoglobin 32.6 PG (27.0-31.0) H Mean Corpuscular Hemoglobin Concent 34.5 G/DL (32.0-36.0) Red Cell Distribution Width 10.3 % (11.6-14.8) L Platelet Count 203 K/UL (150-450) Mean Platelet Volume 6.1 FL (6.5-10.1) L Neutrophils (%) (Auto) 77.7 % (45.0-75.0) H Lymphocytes (%) (Auto) 14.6 % (20.0-45.0) L Monocytes (%) (Auto) 7.0 % (1.0-10.0) Eosinophils (%) (Auto) 0.4 % (0.0-3.0) Basophils (%) (Auto) 0.2 % (0.0-2.0) Sodium Level 138 MMOL/L (136-145) Potassium Level 4.0 MMOL/L (3.5-5.1) Chloride Level 102 MMOL/L (98-107) Carbon Dioxide Level 28 MMOL/L (21-32) Anion Gap 8 mmol/L (5-15) Blood Urea Nitrogen 16 mg/dL (7-18) Creatinine 1.1 MG/DL (0.55-1.30) Estimat Glomerular Filtration Rate mL/min (>60) Glucose Level 116 MG/DL (74-106) H Calcium Level 9.3 MG/DL (8.5-10.1) Total Bilirubin 0.5 MG/DL (0.2-1.0) Aspartate Amino Transf (AST/SGOT) 48 U/L (15-37) H Alanine Aminotransferase (ALT/SGPT) 68 U/L (12-78) Alkaline Phosphatase 75 U/L (46-116) Total Protein 8.8 G/DL (6.4-8.2) H Albumin 3.7 G/DL (3.4-5.0) Globulin 5.1 g/dL Albumin/Globulin Ratio 0.7 (1.0-2.7) L Microbiology Date/Time Source Procedure Growth Status 08/11/18 22:30 Nasal Aspirate MRSA Culture - Final NO METHICILLIN RESISTANT STAPH AUREUS... Complete 08/11/18 22:40 Rectum VRE Culture - Final NO VANCOMYCIN RESISTANT ENTEROCOCCUS ... Complete 08/11/18 22:40 Rectum - Final NO CARBAPENEM-RESISTANT ENTEROBACTERI... Complete Heber Kim MD Aug 14, 2018 12:55
--- NOTE | 2018-08-14 14:54 | Infectious Diseases Prog Note ---
Assessment/Plan Problems: (1) HCAP (healthcare-associated pneumonia) Assessment & Plan: will send sputum culture and start vancomycin and zosyn empiric coverage (2) Sepsis Assessment & Plan: with leukocytosis , source could be pneumonia , will repeat CXR and send blood culture x2 to confirm, and start zosyn with vancomycin empiric coverage (3) Generalized weakness Assessment & Plan: due to the above , continue PT/OT (4) Chest pain Assessment & Plan: rule out ACS, cardiology is following Subjective Allergies: Coded Allergies: No Known Allergies (Unverified , 08/11/18) Objective Vital Signs Last 24 Hour Vital Signs Date Time Temp Pulse Resp B/P (MAP) Pulse Ox O2 Delivery O2 Flow Rate FiO2 08/14/18 12:00 98.3 49 20 107/66 (80) 95 08/14/18 11:53 55 08/14/18 09:14 132/76 08/14/18 09:00 Room Air 08/14/18 08:00 69 08/14/18 08:00 97.5 66 20 132/76 (94) 95 08/14/18 04:00 96.8 46 18 110/63 (79) 99 08/14/18 03:35 52 08/14/18 00:00 96.8 57 20 123/70 (87) 97 08/13/18 23:23 50 08/13/18 21:00 Room Air 08/13/18 20:23 74 126/81 08/13/18 20:13 75 08/13/18 20:00 98.1 61 18 125/69 (87) 100 08/13/18 16:00 63 08/13/18 16:00 97.4 66 18 105/64 (78) 97 Height (Feet): 5 Height (Inches): 8.00 Weight (Pounds): 167 Microbiology Date/Time Source Procedure Growth Status 08/11/18 22:30 Nasal Aspirate MRSA Culture - Final NO METHICILLIN RESISTANT STAPH AUREUS... Complete 08/11/18 22:40 Rectum VRE Culture - Final NO VANCOMYCIN RESISTANT ENTEROCOCCUS ... Complete 08/11/18 22:40 Rectum - Final NO CARBAPENEM-RESISTANT ENTEROBACTERI... Complete Laboratory Tests Test 08/13/18 17:40 White Blood Count 17.4 K/UL (4.8-10.8) H Red Blood Count 4.67 M/UL (4.70-6.10) L Hemoglobin 15.2 G/DL (14.2-18.0) Hematocrit 44.1 % (42.0-52.0) Mean Corpuscular Volume 95 FL (80-99) Mean Corpuscular Hemoglobin 32.6 PG (27.0-31.0) H Mean Corpuscular Hemoglobin Concent 34.5 G/DL (32.0-36.0) Red Cell Distribution Width 10.3 % (11.6-14.8) L Platelet Count 203 K/UL (150-450) Mean Platelet Volume 6.1 FL (6.5-10.1) L Neutrophils (%) (Auto) 77.7 % (45.0-75.0) H Lymphocytes (%) (Auto) 14.6 % (20.0-45.0) L Monocytes (%) (Auto) 7.0 % (1.0-10.0) Eosinophils (%) (Auto) 0.4 % (0.0-3.0) Basophils (%) (Auto) 0.2 % (0.0-2.0) Sodium Level 138 MMOL/L (136-145) Potassium Level 4.0 MMOL/L (3.5-5.1) Chloride Level 102 MMOL/L (98-107) Carbon Dioxide Level 28 MMOL/L (21-32) Anion Gap 8 mmol/L (5-15) Blood Urea Nitrogen 16 mg/dL (7-18) Creatinine 1.1 MG/DL (0.55-1.30) Estimat Glomerular Filtration Rate mL/min (>60) Glucose Level 116 MG/DL (74-106) H Calcium Level 9.3 MG/DL (8.5-10.1) Total Bilirubin 0.5 MG/DL (0.2-1.0) Aspartate Amino Transf (AST/SGOT) 48 U/L (15-37) H Alanine Aminotransferase (ALT/SGPT) 68 U/L (12-78) Alkaline Phosphatase 75 U/L (46-116) Total Protein 8.8 G/DL (6.4-8.2) H Albumin 3.7 G/DL (3.4-5.0) Globulin 5.1 g/dL Albumin/Globulin Ratio 0.7 (1.0-2.7) L Current Medications Medications (Trade) Dose Ordered Sig/Lynn Route PRN Reason Start Time Stop Time Status Last Admin Dose Admin Acetaminophen (Tylenol) 650 mg Q4H PRN ORAL Mild Pain/Temp > 100.5 08/11/18 22:45 09/10/18 22:44 Aspirin (Ecotrin) 81 mg DAILY ORAL 08/12/18 09:00 09/11/18 08:59 08/14/18 09:14 Atorvastatin Calcium (Lipitor) 10 mg BEDTIME ORAL 08/12/18 21:00 09/11/18 20:59 08/13/18 20:22 Ceftriaxone Sodium 1 gm/ Dextrose 55 ml @ 110 mls/hr Q24H IVPB 08/12/18 11:00 08/19/18 10:59 08/14/18 11:07 Docusate Sodium (Colace) 100 mg DAILY ORAL 08/12/18 09:00 09/11/18 08:59 08/14/18 09:14 Folic Acid (Folate) 1 mg DAILY ORAL 08/12/18 09:00 09/11/18 08:59 08/14/18 09:14 Isosorbide Dinitrate (Isordil) 10 mg DAILY ORAL 08/12/18 09:00 09/11/18 08:59 08/14/18 09:14 Methylprednisolone Sodium Succinate (Solu-MEDROL) 20 mg EVERY 12 HOURS IVP 08/14/18 09:00 09/11/18 20:59 08/14/18 09:39 Multivitamins Therapeutic (Therapeutic Multivitamin) 1 ea DAILY ORAL 08/12/18 09:00 09/11/18 08:59 08/14/18 09:14 Nitroglycerin (Ntg) 0.4 mg Q5M PRN SL Prn Chest Pain 08/12/18 09:45 09/11/18 09:44 08/12/18 10:43 Pantoprazole (Protonix) 40 mg DAILY IVP 08/13/18 09:00 09/12/18 08:59 08/14/18 09:13 Piperacillin Sod/ Tazobactam Sod 3.375 gm/Dextrose 110 ml @ 27.5 mls/hr EVERY 8 HOURS IVPB 08/14/18 14:15 08/19/18 14:14 UNV Pyridoxine HCl (Vitamin B6) 50 mg DAILY ORAL 08/12/18 09:00 09/11/18 08:59 08/14/18 09:14 Thiamine HCl (Vitamin B1) 100 mg DAILY ORAL 08/12/18 09:00 09/11/18 08:59 08/14/18 09:14 Tramadol HCl (Ultram) 50 mg Q8H PRN ORAL For Pain 08/12/18 03:30 08/19/18 03:29 08/13/18 20:21 Vancomycin HCl (Vanco rx to dose) 1 ea DAILY PRN MISC Per rx protocol 08/14/18 14:15 09/13/18 14:14 Vancomycin HCl/ Dextrose 250 ml @ 125 mls/hr ONCE ONCE IVPB 08/14/18 15:00 08/14/18 16:59 Vancomycin/Sodium Chloride 250 ml @ 166.667 mls/hr Q12HR@0300,1500 IVPB 08/15/18 03:00 08/20/18 02:59 Markel Casas M.D. Aug 14, 2018 14:54
--- NOTE | 2018-08-14 14:58 | Diagnostic Imaging Report ---
Indication: Cough Technique: One view of the chest Comparison: 08/11/2018 Findings: Scarring or atelectasis is again demonstrated in the right midlung. Previously demonstrated left midlung atelectasis is resolved. The lungs and pleural spaces are otherwise clear. There is better inspiration currently. The heart size is upper limits of normal. Impression: Persistent right midlung atelectasis versus scarring. No acute process otherwise. Improved aeration over 3 days
[2018-08-14] MEDS ORDERED: Vancomycin 1.5 GM/D5W 250ML IVPB ONE (15:00)
[2018-08-14 15:54] VITALS: BP 116/66
[2018-08-14] MEDS ORDERED: Piperacillin/Tazobactam 3.375 GM in D5W 110 ML IVPB SCH (16:00)
[2018-08-14] MEDS: Piperacillin/Tazobactam 3.375 GM in D5W 110 ML IVPB SCH (19:48)
[2018-08-14 20:00] VITALS: BP 116/73
--- NOTE | 2018-08-14 20:00 | Consultation ---
DATE OF CONSULTATION: 08/14/2018 INFECTIOUS DISEASE CONSULTATION CONSULTING PHYSICIAN: Markel Casas M.D. REQUESTING PHYSICIAN: Anthony Fajardo M.D. REASON FOR CONSULTATION: Healthcare-acquired pneumonia with leukocytosis and possible sepsis. Recommendation for antibiotics treatment. HISTORY OF PRESENT ILLNESS: The patient is a 73-year-old male with past medical history of cardiac disease, hypertension, and COPD, was brought in via paramedics to [facility] emergency room for generalized weakness gradual onset. The patient was having also dizziness and intermittent chest pain. He had cough productive of yellowish phlegm at that time, but this has been improving. The patient was sent from half-way facility for evaluation and for persistent symptoms of weakness, chest pain, and cough. The patient was found to have temperature of 97.9 and pulse of 58 in the emergency room, and saturating 95% on room air. Chest x-ray showed bilateral hazy infiltration concerning for pneumonia. So, he was started on ceftriaxone by the admitting physician and was admitted to the hospital for workup of chest pain. The patient today developed significant leukocytosis while on ceftriaxone with white count of 17.4 concerning for sepsis. So, Infectious Disease consultation was requested for antibiotics treatment and further management. REVIEW OF SYSTEMS: A 14-point of system reviewed were all negative apart from the one I mentioned above in my H and P. PAST MEDICAL HISTORY: Significant for COPD., hypertension, and cardiac disease. PAST SURGICAL HISTORY: Not on record. FAMILY HISTORY: Not contributory. SOCIAL HISTORY: The patient lives at the half-way. No recent drugs, tobacco, or alcohol. ALLERGIES: No known drug allergy. MEDICATIONS: He is currently on ceftriaxone. For the rest of his medications, please refer to MAR. PHYSICAL EXAMINATION: VITAL SIGNS: Temperature 98.3, pulse 49, respirations 20, blood pressure 107/66, and saturation 95% on room air. GENERAL: An elderly male, lying in bed, awake, alert, mildly confused, not in acute distress. HEENT: Normocephalic and atraumatic. Pupils reactive to light equally. Moist oral mucosa. No exudate or thrush. NECK: Supple. No lymphadenopathy. CARDIOVASCULAR: Regular rate and rhythm. No murmur or gallop. LUNGS: He has crackles and diminished breathing sounds at the bases. Normal breathing effort. ABDOMEN: Soft, nontender, and nondistended. Normal bowel sounds. No hepatosplenomegaly. No ascites. EXTREMITIES: No edema or cyanosis. SKIN: No rash. No hives. No wounds. LABORATORY DATA: Labs showed white count of 17.4, hemoglobin of 15.2, platelet count of 203,000, and neutrophils of 77.7. BUN of 16 and creatinine of 1.1. AST of 48 and ALT of 68. Microbiology - VRE and MRSA screening are both negative. IMAGING: Head CT scan showed no acute intracranial process. Moderate involutional and microvascular ischemic changes. Chest x-ray which was done on 08/11/2018 showed linear anemia opacity in the mid lungs bilaterally, potentially from atelectasis. Difficult to exclude infectious infiltrate. ASSESSMENT AND RECOMMENDATION: 1. Healthcare-acquired pneumonia with bilateral infiltrates. We will repeat chest x-ray to confirm, send sputum culture if he produces any, and start vancomycin and Zosyn empiric coverage for now. 2. Sepsis with leukocytosis, source could be his pneumonia. We will repeat chest x-ray to confirm, send blood culture x2, and start Zosyn with vancomycin empiric coverage. 3. Generalized weakness due to the above. Continue PT/OT. 4. Chest pain, rule out acute coronary syndrome. Cardiology team is following. Thank you for the consult. Infectious Disease will continue to follow. Markel Casas M.D. DR: KENNEDY JOB#: [id number] CC:
--- NOTE | 2018-08-14 20:15 | Consultation ---
DATE OF CONSULTATION: 08/14/2018 CARDIAC ELECTROPHYSIOLOGY CONSULTATION CONSULTING PHYSICIAN: Heber Kim M.D. REFERRING PHYSICIAN: Anthony Fajardo M.D. REASON FOR CONSULTATION: Bradycardia with heart rate down to 40s. HISTORY OF PRESENT ILLNESS: The patient is a 73-year-old gentleman, who has history of hypertension as well as history of coronary artery disease and chronic obstructive pulmonary disease and degenerative joint disease, was brought in from care home facility for evaluation of generalized weakness and intermittent chest pain. The patient was evaluated by Dr. Barr from Cardiology perspective. Overnight, the patient was bradycardic with heart rate dropping to 40s. Cardiac electrophysiology consultation was requested for further evaluation and management. At the time of my evaluation, the patient has syncope or presyncope. REVIEW OF SYSTEMS: Review of systems was negative other than what was mentioned in the history of present illness. PAST MEDICAL HISTORY: As mentioned above. FAMILY HISTORY: Noncontributory. SOCIAL HISTORY: [place] lives [place]. Occasionally smokes. Does drink alcohol. PHYSICAL EXAM: VITAL SIGNS: Blood pressure 107/66, pulse is 46, respirations 18, and temperature 98. HEAD AND NECK: Shows no jugular venous distention. LUNGS: Clear. CARDIOVASCULAR: Shows bradycardic S1 and S2 with no gallop or murmur. ABDOMEN: Soft. EXTREMITIES: No pitting edema. LABORATORY AND DIAGNOSTIC DATA: His EKG showed sinus bradycardia at the rate of 57. Telemetry strip showed bradycardia, heart rate down to 45, sinus rhythm. LABORATORY DATA: Labs show white count of 17.4, hemoglobin of 15.2, hematocrit of 44, and platelet count is 203,000. Sodium 138, potassium 4.0, BUN of 16, and creatinine 1. Troponin negative x2. BNP is 36. ASSESSMENT AND PLAN: 1. Bradycardia. The patient was ruled out for myocardial infarction already. The patient is off any sinus or AV chaya blocking agent. We will continue to follow the patient on telemetry. If continues to be bradycardic, permanent pacemaker will be considered at that point, but at this time, we will just hold off and check a thyroid function test. 2. Atypical chest pain. Further evaluation by Dr. Barr. The patient is on Lipitor and aspirin and Isordil. 3. History of alcohol use. On thiamine and vitamin B6. 4. Chronic obstructive pulmonary disease. On Solu-Medrol. Thank you very much, Dr. Fajardo, for allowing me to participate in the care of this patient. Please do not hesitate to contact me for any questions regarding my evaluation. Heber Kim M.D. DR: JASON JOB#: [id number] CC:
[2018-08-14 22:49] LABS: APPEARANCE,URINE CLEAR; BILIRUBIN, URINE NEGATIVE (NEGATIVE); COLOR,URINE PALE YELLOW; GLUCOSE, URINE (UA) NEGATIVE (NEGATIVE); KETONES,URINE NEGATIVE (NEGATIVE); LEUKOCYTE ESTERASE ,URINE 1+ (NEGATIVE); NITRITE,URINE NEGATIVE (NEGATIVE); PH,URINE 5 (4.5-8.0); PROTEIN,URINE NEGATIVE (NEGATIVE); UROBILINOGEN,URINE NORMAL MG/DL (0.0-1.0)
[2018-08-15] VITALS: BP 126/65
[2018-08-15] MEDS ORDERED: Vancomycin 750mg/NS 250ml IVPB SCH ×2 (03:00→05:00)
[2018-08-15 04:00] VITALS: BP 130/80
--- NOTE | 2018-08-15 05:27 | Cardiology Progress Note ---
Assessment/Plan Assessment/Plan LATE ENTRY PROGRESS NOTE: DOS: AUG 14, 2017 TIME THE PATIENT SEEN: 12:37pm 1. Noncardiac chest pain. The patient's chest pain is nonischemic in origin based on the characters of the chest pain. 12-lead electrocardiogram does not show any evidence of ischemia. Acute myocardial infarction is ruled out. 2D echocardiography is pending. 2. History of hypertension, well controlled, off metoprolol due to bradycardia, EP is following. 3. History of angina pectoris. 4. History of chronic obstructive pulmonary disease. Subjective Subjective Sinus bradycardia at rate of 59. Objective Last 24 Hour Vital Signs Date Time Temp Pulse Resp B/P (MAP) Pulse Ox O2 Delivery O2 Flow Rate FiO2 08/15/18 00:00 99.3 68 17 126/65 (85) 99 08/14/18 23:19 59 08/14/18 21:00 Room Air 08/14/18 20:00 97.9 58 18 116/73 (87) 97 08/14/18 19:02 58 08/14/18 15:54 98.1 52 16 116/66 (83) 99 08/14/18 15:14 53 08/14/18 12:00 98.3 49 20 107/66 (80) 95 08/14/18 11:53 55 08/14/18 09:14 132/76 08/14/18 09:00 Room Air 08/14/18 08:00 69 08/14/18 08:00 97.5 66 20 132/76 (94) 95 Intake and Output 08/14/18 08/15/18 19:00 07:00 Intake Total 480 ml Output Total 250 ml Balance 230 ml Intake Oral 480 ml Output Urine Total 250 ml 2D Echo: PENDING Laboratory Tests Test 08/14/18 20:00 Urine Color Pale yellow Urine Appearance Clear Urine pH 5 (4.5-8.0) Urine Specific [place] 1.020 (1.005-1.035) Urine Protein Negative (NEGATIVE) Urine Glucose (UA) Negative (NEGATIVE) Urine Ketones Negative (NEGATIVE) Urine Blood 1+ (NEGATIVE) H Urine Nitrite Negative (NEGATIVE) Urine Bilirubin Negative (NEGATIVE) Urine Urobilinogen Normal MG/DL (0.0-1.0) Urine Leukocyte Esterase 1+ (NEGATIVE) H Urine RBC 0-2 /HPF (0 - 0) H Urine WBC 0-2 /HPF (0 - 0) Urine Squamous Epithelial Cells None /LPF (NONE/OCC) Urine Bacteria None /HPF (NONE) Objective HEENT: Atraumatic and normocephalic. Anicteric. Pupils are equal, round, and reactive to light and accommodation. Extraocular muscles intact. NECK: JVP less than 5 cm. No carotid bruit. Carotid upstroke is 2+ bilaterally. CARDIOVASCULAR: Normal S1 and S2. Bradycardic. A 2/6 mid systolic murmur at the left sternal border. PMI is at fourth intercostal space in the midclavicular line. LUNGS: Diminished breath sounds in both lungs. ABDOMEN: Soft, nontender, and nondistended. No hepatosplenomegaly. Positive bowel sounds. EXTREMITIES: No evidence of edema, clubbing, or cyanosis. Heber Torres MD Aug 15, 2018 05:27
[2018-08-15] MEDS: Piperacillin/Tazobactam 3.375 GM in D5W 110 ML IVPB SCH (06:00)
[2018-08-15 08:04] VITALS: BP 158/69
[2018-08-15] MEDS: Aspirin EC 81mg tab ORAL SCH (08:27)
[2018-08-15] MEDS: Thiamine 100mg tab ORAL SCH (08:27)
[2018-08-15] MEDS: Pyridoxine 50mg tab ORAL SCH (08:27)
[2018-08-15 08:28] VITALS: BP 158/69
[2018-08-15] MEDS: Multivitamin w/Minerals tab ORAL SCH (08:28)
[2018-08-15] MEDS: Docusate 100mg cap ORAL SCH (08:34)
[2018-08-15] MEDS: Solu-MEDROL 40mg Inj IVP SCH (09:00)
[2018-08-15] MEDS: Pantoprazole Inj IVP SCH (09:00)
--- NOTE | 2018-08-15 10:34 | Cardiac Electrophysiology PN ---
Assessment/Plan Assessment/Plan 1. Bradycardia. The patient was ruled out for myocardial infarction already. The patient is off any sinus or AV chaya blocking agent. HR better now in 50-60s 2. Atypical chest pain. Further evaluation by Dr. Torres . The patient is on Lipitor and aspirin and Isordil. 3. History of alcohol use. On thiamine and vitamin B6. 4. Chronic obstructive pulmonary disease. On Solu-Medrol. D WRN Subjective Subjective In SR while wearing the monitor. Wants to go home. Objective Last 24 Hour Vital Signs Date Time Temp Pulse Resp B/P (MAP) Pulse Ox O2 Delivery O2 Flow Rate FiO2 08/15/18 09:00 Room Air 08/15/18 08:28 158/69 08/15/18 08:04 96.3 75 20 158/69 (98) 99 08/15/18 04:00 65 08/15/18 04:00 97.7 59 18 130/80 (97) 100 08/15/18 00:00 99.3 68 17 126/65 (85) 99 08/14/18 23:19 59 08/14/18 21:00 Room Air 08/14/18 20:00 97.9 58 18 116/73 (87) 97 08/14/18 19:02 58 08/14/18 15:54 98.1 52 16 116/66 (83) 99 08/14/18 15:14 53 08/14/18 12:00 98.3 49 20 107/66 (80) 95 08/14/18 11:53 55 Intake and Output 08/14/18 08/15/18 19:00 07:00 Intake Total 480 ml Output Total 250 ml Balance 230 ml Intake Oral 480 ml Output Urine Total 250 ml # Voids 2 # Bowel Movements 1 Laboratory Tests Test 08/14/18 20:00 Urine Color Pale yellow Urine Appearance Clear Urine pH 5 (4.5-8.0) Urine Specific [place] 1.020 (1.005-1.035) Urine Protein Negative (NEGATIVE) Urine Glucose (UA) Negative (NEGATIVE) Urine Ketones Negative (NEGATIVE) Urine Blood 1+ (NEGATIVE) H Urine Nitrite Negative (NEGATIVE) Urine Bilirubin Negative (NEGATIVE) Urine Urobilinogen Normal MG/DL (0.0-1.0) Urine Leukocyte Esterase 1+ (NEGATIVE) H Urine RBC 0-2 /HPF (0 - 0) H Urine WBC 0-2 /HPF (0 - 0) Urine Squamous Epithelial Cells None /LPF (NONE/OCC) Urine Bacteria None /HPF (NONE) Objective HEAD AND NECK: No JVD LUNGS: Clear. CARDIOVASCULAR: Bradycardic S1 and S2 with no gallop or murmur. ABDOMEN: Soft. EXTREMITIES: No pitting edema. Heber Kim MD Aug 15, 2018 10:34
[2018-08-15 12:03] LABS: BASOPHILS % (AUTO) 1.9 % (0.0-2.0); EOSINOPHILS % (AUTO) 0.2 % (0.0-3.0); HEMATOCRIT 42.6 % (42.0-52.0); HEMOGLOBIN 14.3 G/DL (14.2-18.0); LYMPHOCYTES % (AUTO) 16.8 % (20.0-45.0); MEAN CORPUSCULAR VOLUME 97 FL (80-99); MONOCYTES % (AUTO) 7.6 % (1.0-10.0); NEUTROPHILS % (AUTO) 73.6 % (45.0-75.0); PLATELET COUNT 193 K/UL (150-450); RED CELL DISTRIBUTION WIDTH 10.2 % (11.6-14.8); WHITE BLOOD COUNT 17.7 K/UL (4.8-10.8)
[2018-08-15 12:16] LABS: ANION GAP 6 mmol/L (5-15); BLOOD UREA NITROGEN 19 mg/dL (7-18); CALCIUM 9.3 MG/DL (8.5-10.1); CARBON DIOXIDE 28 MMOL/L (21-32); CHLORIDE 102 MMOL/L (98-107); CREATININE 0.8 MG/DL (0.55-1.30); POTASSIUM 3.8 MMOL/L (3.5-5.1); SODIUM 136 MMOL/L (136-145)
[2018-08-15 12:21] LABS: ALANINE AMINOTRANSFERASE 62 U/L (12-78); ALBUMIN 3.7 G/DL (3.4-5.0); ALBUMIN/GLOBULIN RATIO 0.8 (1.0-2.7); ALKALINE PHOSPHATASE 65 U/L (46-116); ASPARTATE AMINO TRANSFERASE 36 U/L (15-37); BILIRUBIN,TOTAL 0.6 MG/DL (0.2-1.0)
--- NOTE | 2018-08-15 13:12 | Consultation ---
Consult Note Consult Note HEME/ONC PROGRESS NOTE REFERRING PHYSICIAN: Anthony Fajardo REASON FOR CONSULTATION: Leukocytosis DATE OF CONSULTATION: 08/15/2018 HISTORY OF PRESENT ILLNESS: The patient is a very unfortunate 73-year-old gentleman who was brought in by EMS from [facility] for evaluation and management of generalized weakness as well as intermittent chest pain. He is a very poor historian and I cannot obtain detailed history. The patient was admitted to telemetry for further evaluation and management. Hematology service consulted for the evaluation of leukocytosis. Labs and imaging have been reviewed. Pt currently on abx. PAST MEDICAL HISTORY: hypertension, degenerative joint disease, angina pectoris , chronic obstructive pulmonary disease. PAST SURGICAL HISTORY: None SOCIAL HISTORY: No prior history of tobacco, alcohol, or illicit drug use according to the chart. FAMILY HISTORY: Noncontributory REVIEW OF SYSTEMS: HEENT: Denies any headache, diplopia, or blurred vision. CONSTITUTIONAL: Denies any fever, chills, or night sweats. Positive for generalized weakness. CARDIOVASCULAR: Chest pain, but no PND, orthopnea, leg swelling, palpitations, or syncope. PULMONARY: Denies any cough, hemoptysis, or wheezing. GASTROINTESTINAL: Denies any nausea, vomiting, diarrhea, constipation, abdominal pain, or GI bleed. GENITOURINARY: Denies any hematuria, dysuria, or incontinence. NEUROLOGY: Denies any motor dysfunction, sensory deficit, or altered speech. PHYSICAL EXAMINATION: VITAL SIGNS: Have been reviewed GENERAL: in no apparent respiratory distress. Alert and orient x4. HEENT: Atraumatic and normocephalic. Anicteric. Pupils are equal, round, and reactive to light and accommodation. Extraocular muscles intact. NECK: JVP less than 5 cm. No carotid bruit. CARDIOVASCULAR: Normal S1 and S2. LUNGS: Diminished breath sounds in both lungs. ABDOMEN: Soft, nontender, and nondistended. No hepatosplenomegaly. Positive bowel sounds. EXTREMITIES: No evidence of edema, clubbing, or cyanosis. LABORATORY DATA: wbc 17.7 hgb 14.3 plt 193 IMAGING: CXR --> Linear opacities in the midlungs bilaterally, potentially from atelectasis. ASSESSMENT AND RECOMMENDATIONS # Leukocytosis. Likely related to underlying infection, speis, pna. --> ID is following, appreciate recs --> Peripheral has been ordered, results are pending --> Medications have been reviewed --> Imaging has been reviewed. CXR: linear opacities in the midlungs bilaterally , potentially from atelectasis. Difficult to exclude infectious infiltrate. --> Blood cultures and urine cultures prn --> has been started on abx, empiric treatment # Sepsis. ID is following, appreciate recs. --> source could be pneumonia --> repeat CXR and send blood culture x2 to confirm --> On zosyn with vancomycin, empiric coverage # Noncardiac chest pain. Cardiology is following, appreciate recs. --> The patient's chest pain is nonischemic in origin based on the characters of the chest pain. --> A 12-lead electrocardiogram does not show any evidence of ischemia. Acute myocardial infarction is ruled out. We will obtain 2D echocardiography --> continue aspirin and atorvastatin in this patient. # Weakness. Due to the above --> continue PT/OT GREATLY APPRECIATE CONSULTATION. Curt Keys MD Aug 15, 2018 13:12
[2018-08-15] MEDS ORDERED: Zosyn 4.5gm q8h **Extended infusion IVPB SCH ×2 (14:30)
--- NOTE | 2018-08-15 15:05 | Cardiology Report ---
APPROVED REPORT EKG Measurement Heart [id number] Sinus bradycardia Septal infarct, age undetermined Abnormal ECG
[2018-08-15] MEDS ORDERED: LORazepam 1mg tab ORAL SCH (15:30)
--- NOTE | 2018-08-15 15:34 | Infectious Diseases Prog Note ---
Assessment/Plan Problems: (1) HCAP (healthcare-associated pneumonia) Assessment & Plan: repeated CXR , didn't show new infiltrates , continue vancomycin and zosyn empiric coverage pending blood culture to rule out bacteremia (2) Sepsis Assessment & Plan: with leukocytosis , source could be pneumonia VS sepsis , blood culture x2 is pending , continue zosyn with vancomycin empiric coverage pending cultures (3) Generalized weakness Assessment & Plan: due to the above , continue PT/OT (4) Chest pain Assessment & Plan: rule out ACS, cardiology is following Subjective Constitutional: Reports: no symptoms HEENT: Reports: no symptoms Respiratory: Reports: dry cough Breasts: Reports: no symptoms Cardiovascular: Reports: no symptoms Gastrointestinal/Abdominal: Reports: no symptoms Genitourinary: Reports: no symptoms Neurologic: Reports: no symptoms Psychiatric: Reports: anxiety, other - psychosis Skin: Reports: no symptoms Endocrine: Reports: no symptoms Hematologic: Reports: no symptoms Musculoskeletal: Reports: no symptoms Allergies: Coded Allergies: No Known Allergies (Verified , 08/25/09) Objective Vital Signs Last 24 Hour Vital Signs Date Time Temp Pulse Resp B/P (MAP) Pulse Ox O2 Delivery O2 Flow Rate FiO2 08/15/18 12:00 75 08/15/18 12:00 72 08/15/18 09:00 Room Air 08/15/18 08:28 158/69 08/15/18 08:04 96.3 75 20 158/69 (98) 99 08/15/18 08:00 60 08/15/18 04:00 65 08/15/18 04:00 97.7 59 18 130/80 (97) 100 08/15/18 00:00 99.3 68 17 126/65 (85) 99 08/14/18 23:19 59 08/14/18 21:00 Room Air 08/14/18 20:00 97.9 58 18 116/73 (87) 97 08/14/18 19:02 58 08/14/18 15:54 98.1 52 16 116/66 (83) 99 Height (Feet): 5 Height (Inches): 8.00 Weight (Pounds): 167 General Appearance: WD/WN, no acute distress HEENT: normocephalic, atraumatic, anicteric, mucous membranes moist, PERRL Respiratory/Chest: lungs clear, no respiratory distress, no accessory muscle use, decreased breath sounds, crackles/rales Cardiovascular: normal peripheral pulses, normal rate, regular rhythm, no gallop/murmur, no JVD Abdomen: normal bowel sounds, soft, non tender, no organomegaly, non distended , no mass, no scars Extremities: no cyanosis, no clubbing Skin: no rash, no lesions, no ulcers Neurologic/Psychiatric: alert, responsive, other - agitated Lymphatic: no neck adenopathy, no groin adenopathy Musculoskeletal: normal muscle bulk, no effusion Laboratory Tests Test 08/14/18 20:00 08/15/18 11:50 Urine Color Pale yellow Urine Appearance Clear Urine pH 5 (4.5-8.0) Urine Specific [place] 1.020 (1.005-1.035) Urine Protein Negative (NEGATIVE) Urine Glucose (UA) Negative (NEGATIVE) Urine Ketones Negative (NEGATIVE) Urine Blood 1+ (NEGATIVE) H Urine Nitrite Negative (NEGATIVE) Urine Bilirubin Negative (NEGATIVE) Urine Urobilinogen Normal MG/DL (0.0-1.0) Urine Leukocyte Esterase 1+ (NEGATIVE) H Urine RBC 0-2 /HPF (0 - 0) H Urine WBC 0-2 /HPF (0 - 0) Urine Squamous Epithelial Cells None /LPF (NONE/OCC) Urine Bacteria None /HPF (NONE) White Blood Count 17.7 K/UL (4.8-10.8) H Red Blood Count 4.40 M/UL (4.70-6.10) L Hemoglobin 14.3 G/DL (14.2-18.0) Hematocrit 42.6 % (42.0-52.0) Mean Corpuscular Volume 97 FL (80-99) Mean Corpuscular Hemoglobin 32.5 PG (27.0-31.0) H Mean Corpuscular Hemoglobin Concent 33.6 G/DL (32.0-36.0) Red Cell Distribution Width 10.2 % (11.6-14.8) L Platelet Count 193 K/UL (150-450) Mean Platelet Volume 5.5 FL (6.5-10.1) L Neutrophils (%) (Auto) 73.6 % (45.0-75.0) Lymphocytes (%) (Auto) 16.8 % (20.0-45.0) L Monocytes (%) (Auto) 7.6 % (1.0-10.0) Eosinophils (%) (Auto) 0.2 % (0.0-3.0) Basophils (%) (Auto) 1.9 % (0.0-2.0) Sodium Level 136 MMOL/L (136-145) Potassium Level 3.8 MMOL/L (3.5-5.1) Chloride Level 102 MMOL/L (98-107) Carbon Dioxide Level 28 MMOL/L (21-32) Anion Gap 6 mmol/L (5-15) Blood Urea Nitrogen 19 mg/dL (7-18) H Creatinine 0.8 MG/DL (0.55-1.30) Estimat Glomerular Filtration Rate mL/min (>60) Glucose Level 94 MG/DL (74-106) Calcium Level 9.3 MG/DL (8.5-10.1) Total Bilirubin 0.6 MG/DL (0.2-1.0) Aspartate Amino Transf (AST/SGOT) 36 U/L (15-37) Alanine Aminotransferase (ALT/SGPT) 62 U/L (12-78) Alkaline Phosphatase 65 U/L (46-116) Total Protein 8.5 G/DL (6.4-8.2) H Albumin 3.7 G/DL (3.4-5.0) Globulin 4.8 g/dL Albumin/Globulin Ratio 0.8 (1.0-2.7) L Thyroid Stimulating Hormone (TSH) 1.743 uiU/mL (0.358-3.740) Free Thyroxine 0.96 NG/DL (0.76-1.46) Current Medications Medications (Trade) Dose Ordered Sig/Lynn Route PRN Reason Start Time Stop Time Status Last Admin Dose Admin Acetaminophen (Tylenol) 650 mg Q4H PRN ORAL Mild Pain/Temp > 100.5 08/11/18 22:45 09/10/18 22:44 Aspirin (Ecotrin) 81 mg DAILY ORAL 08/12/18 09:00 09/11/18 08:59 08/15/18 08:27 Atorvastatin Calcium (Lipitor) 10 mg BEDTIME ORAL 08/12/18 21:00 09/11/18 20:59 08/14/18 20:43 Docusate Sodium (Colace) 100 mg DAILY ORAL 08/12/18 09:00 09/11/18 08:59 08/15/18 08:34 Folic Acid (Folate) 1 mg DAILY ORAL 08/12/18 09:00 09/11/18 08:59 08/15/18 08:28 Isosorbide Dinitrate (Isordil) 10 mg DAILY ORAL 08/12/18 09:00 09/11/18 08:59 08/15/18 08:28 Lorazepam (Ativan) 1 mg ONCE ORAL 08/15/18 15:30 08/15/18 16:30 Methylprednisolone Sodium Succinate (Solu-MEDROL) 20 mg EVERY 12 HOURS IVP 08/14/18 09:00 09/11/18 20:59 08/14/18 20:44 Multivitamins Therapeutic (Therapeutic Multivitamin) 1 ea DAILY ORAL 08/12/18 09:00 09/11/18 08:59 08/15/18 08:28 Nitroglycerin (Ntg) 0.4 mg Q5M PRN SL Prn Chest Pain 08/12/18 09:45 09/11/18 09:44 08/12/18 10:43 Pantoprazole (Protonix) 40 mg DAILY IVP 08/13/18 09:00 09/12/18 08:59 08/14/18 09:13 Piperacillin Sod/ Tazobactam Sod 4.5 gm/Sodium Chloride 110 ml @ 27.5 mls/hr EVERY 8 HOURS IVPB 08/15/18 14:30 08/20/18 14:29 Pyridoxine HCl (Vitamin B6) 50 mg DAILY ORAL 08/12/18 09:00 09/11/18 08:59 08/15/18 08:27 Thiamine HCl (Vitamin B1) 100 mg DAILY ORAL 08/12/18 09:00 09/11/18 08:59 08/15/18 08:27 Tramadol HCl (Ultram) 50 mg Q8H PRN ORAL For Pain 08/12/18 03:30 08/19/18 03:29 08/13/18 20:21 Vancomycin HCl (Vanco rx to dose) 1 ea DAILY PRN MISC Per rx protocol 08/14/18 14:15 09/13/18 14:14 Vancomycin/Sodium Chloride 250 ml @ 166.667 mls/hr Q12H IVPB 08/15/18 05:00 08/20/18 04:59 08/15/18 05:00 Markel Casas M.D. Aug 15, 2018 15:34
--- NOTE | 2018-08-15 21:30 | Progress Note ---
SUBJECTIVE: This is an elderly male, currently doing fine, slightly has confusion and agitation but he otherwise has been fine. HOSPITAL COURSE: The patient during hospital course was found to have acute COPD, CHF, UTI. The patient was treated with IV antibiotics and bronchodilator treatment. Medically . DIET: He is on two-gram sodium diet . ACTIVITY: As tolerated. DISCHARGE MEDICATIONS: The patient is going to continue the and no antibiotics. Continue bronchodilator treatment and continue as I mentioned. Followup as an outpatient. Ace Fajardo M.D. DR: Viral JOB#: [id number] CC:
--- NOTE | 2018-08-16 07:58 | Cardiology Report ---
APPROVED REPORT EXAM: Two-dimensional and M-mode echocardiogram with Doppler and color Doppler. INDICATION EJECTION FRACTION M-Mode DIMENSIONS IVSd1.0 (0.7-1.1cm)Left Atrium (MM)2.9 (1.6-4.0cm) LVDd5.1 (3.5-5.6cm)Aortic Root4.0 (2.0-3.7cm) PWd0.9 (0.7-1.1cm)Aortic Cusp Exc.1.6 (1.5-2.0cm) IVSs1.0 cm LVDs3.6 (2.5-4.0cm) PWs1.4 cm Technically difficult study due to poor acoustical windows. Normal left ventricular chamber size, systolic function and wall motion to extent visualized. Left ventricular ejection fraction estimated to be 55 %. No evidence of left ventricular hypertrophy. All other cardiac chamber sizes are within normal limits. Focal aortic valve sclerosis with adequate cusp excursion. Mildly thickened mitral valve leaflets with normal excursion. Mitral annulus and aortic root calcification. Pulmonic valve structure not well visualized . Normal tricuspid valve structure. IVC in normal size with physiologic collapse . A color flow and spectral Doppler study was performed and revealed: No aortic regurgitation. Trace mitral regurgitation. Mitral diastolic velocities suggest reduced left ventricular relaxation c/w mild LV diastolic dysfunction (Grade I ) Mild tricuspid regurgitation. Tricuspid systolic velocities suggests peak right ventricular systolic pressure of 27mmHg.
--- NOTE | 2018-08-17 08:49 | Discharge Summary ---
Discharge Summary Discharge Summary _ DATE OF ADMISSION: 08/11/2018 DATE OF DISCHARGE: 08/15/2018 DISCHARGED BY: Dr. Fajardo REASON FOR ADMISSION: 73 years old male with past medical history of hypertension ,COPD, presented to emergency department with generalized weakness and dizziness. Patient also reported intermittent chest pain. Upon evaluation vital signs were stable. No leukocytosis, stable hemoglobin and hematocrit. Chemistry was unremarkable. Stable renal parameters and LFT. Troponin negative. EKG revealed sinus bradycardia with heart rate 57, no acute ischemic changes Urinalysis with no evidence of UTI. CT of the head revealed no acute intracranial pathology. It demonstrated moderate involutional and microvascular ischemic changes. Chest x-ray revealed linear opacity in the mid lungs bilaterally , potentially from atelectasis. Difficult to exclude infectious infiltrates. Patient admitted with diagnoses of chest pain, r/o acute myocardial infarction , hypertension, hyperlipidemia, degenerative arthritis. CONSULTANTS: sheet metal worker Dr. Granger cardiac electrophysiology Dr. Eli ID specialist Dr. Casas lining finisher/oncologist Dr. Keys psychiatrist [facility] COURSE: Patient admitted to telemetry floor. Cardiology consult consult was requested. Patient started on Aspirin and beta- blanca Repeated troponin negative. Echocardiogram revealed preserved ejection fraction of 55%. No evidence of left ventricular hypertrophy. No evidence of wall motion abnormality. Manager Of Administration ruled out patient for myocardial infarction by negative troponin and absence of acute ischemic changes on EKG. Per sheet metal worker, patient had noncardiac chest pain . Chest pain was nonischemic in origin, based on the character of the chest pain. Patient was on aspirin, nitroglycerin, Isordil and Lipitor. Patient noted to have further bradycardia, heart rate down to 46 -lowest reading. Cardiac sales representative canvas products followed . Patient was taken off beta blanca. Bradycardia was likely provoked by beta-blanca. Document Control Supervisor recommended to keep patient off any sinus or AV chaya blocking agents. Heart rate improved to 50-60. Patient started on IV Solu-Medrol with gradual tapering down. Antitussive provided as needed. Noncardiac chest pain was likely due to acute COPD exacerbation Patient developed leukocytosis . Infectious disease consult was requested. Patient was started on empiric antibiotics for possible healthcare acquired pneumonia. Repeated chest x-ray showed persistent right midlung atelectasis versus scaring. Blood cultures are negative. Antibiotic stopped prior to discharge. Steroids to be continued orally at the facility to complete the course. Patient with history of alcohol abuse. Patient was counseled to continue abstinence from alcohol. Patient was continued on thiamine and B6 supplements. Patient was working with physical therapy. Bowel regimen instituted. Patient clinically stabilized and was ready for transfer back to nursing facility for continuation of care. FINAL DIAGNOSES: Noncardiac chest pain, likely due to acute COPD exacerbation Acute COPD exacerbation Bradycardia, likely secondary to beta-blanca Possible healthcare associated pneumonia History of ETOH abuse Hypertension Hyperlipidemia DISCHARGE MEDICATIONS: See Medication Reconciliation list. DISCHARGE INSTRUCTIONS: Patient was discharged to the [facility] facility. Follow up with medical doctor at the facility. I have been assigned to dictate discharge summary for this account. I was not involved in the patient's management. Daxa Rush NP Aug 17, 2018 08:49
== END 2018-08-15 15:35 | DRG 190 ==
LOC: EDBD 16:01 → EDBEDREQ 17:45 → EMR 20:15 → 2E 20:20 → MERGE 20:20 → EDBEDREQ 21:18
DX: J44.1 Chronic obstructive pulmonary disease with (acute) exacerbation (principal); J18.9 Pneumonia, unspecified organism; R07.89 Other chest pain; I10 Essential (primary) hypertension; E78.5 Hyperlipidemia, unspecified; M19.90 Unspecified osteoarthritis, unspecified site; R00.1 Bradycardia, unspecified; T44.7X5A Adverse effect of beta-adrenoreceptor antagonists, initial encounter; F10.21 Alcohol dependence, in remission
CPT/HCPCS: 36415; 70450; 71045; 80053; 81001; 82550; 82553; 83690; 83880; 84439; 84443; 84484; 85025; 85379; 85610; 85730; 87040; 87081; 93005; 93306; 99285